=== PATIENT | female | born 1960 | race Caucasian/White ===

== ENCOUNTER → 2016-09-11 | Outpatient (CLI) | payer MEDICAID ==
[2016-02-07 11:19] VITALS: BP 125/87
--- NOTE | 2016-09-11 15:13 | US ---
Examination: Unilateral left diagnostic mammogram and left breast ultrasound. Clinical history: Left breast and left axillary pain. Technique: Digital CC and MLO views of the left breast were obtained. Targeted left breast ultrasoun d was also obtained evaluating the area of clinical concern in the upper outer aspect of the left br east and in the left axillary region Comparison: Mammogram dated 04/20/2016. Findings: The left breast is composed of scattered fibroglandular densities. Vascular calcifications are noted in the left breast. A skin mole is present overlying the left breast. No suspicious mass, area of architectural distortion or suspicious cluster of microcalcifications is noted. Targeted left breast ultrasound reveals a small 4 mm benign cyst at the 3 o'clock position. Scattere d areas of mild ductal ectasia also noted. A 7 mm oval benign appearing left axillary lymph node is seen. No suspicious cystic or solid mass is noted. Impression: 1. No mammographic or sonographic evidence of malignancy. BI-RADS category 2-benign findings. Recommend routine annual screening mammogram. Diagnostic CAD was utilized and reviewed. * 0 (ZERO) - ASSESSMENT INCOMPLETE; ADDITIONAL IMAGING IS NEEDED. * 0C - ASSESSMENT INCOMPLETE, NEEDS ADDITIONAL IMAGING EVALUATION AND/OR PRIOR MAMMOGRAMS FOR COMPAR ADAM. * 1/1 (ONE) - NEGATIVE. * 2/II (TWO) - BENIGN FINDINGS. * 3/III (THREE) - PROBABLY BENIGN FINDING; SHORT INTERVAL FOLLOW-UP SUGGESTED. * 4/IV (FOUR) - SUSPICIOUS ABNORMALITY; BIOPSY SHOULD BE CONSIDERED. * 5/V - HIGHLY SUSPICIOUS OF MALIGNANCY; BIOPSY SHOULD BE PERFORMED. * 6/IV - KNOWN BIOPSY PROVEN MALIGNANCY-APPROPRIATE ACTION SHOULD BE TAKEN. A NEGATIVE X-RAY REPORT SHOULD NOT DELAY BIOPSY IF A DOMINANT OR CLINICALLY SUSPICIOUS MASS IS PRESENT; 4 TO 8 PERCENT OF CANCERS ARE NOT IDENTIFIED BY X-RAY. A NEGATIVE REPORT MAY REINFORCE THE CLINICAL IMPRESSION. ADENOSIS AND DENSE BREASTS MAY OBSCURE AN UNDERLYING NEOPLASM. Reported By:
== END ==
LOC: RAD 13:01
PROVIDERS: ATTEND Nurse Practitioner Family
DX: M79.622 Pain in left upper arm (principal); N64.4 Mastodynia; I10 Essential (primary) hypertension
CPT/HCPCS: 76642; 77065